=== PATIENT | female | born 1950 | race Two or more races ===

== ENCOUNTER 2025-06-02 10:50 | Outpatient (CLI) | payer OTHER | END 2025-06-02 17:00 | disposition home or self-care (01) | LOC: Rad HDHVI 10:50 | PROVIDERS: ATTEND Internal Medicine Cardiovascular Disease | DX: I07.1 Rheumatic tricuspid insufficiency (principal); R06.02 Shortness of breath | CPT/HCPCS: 93306 ==

== ENCOUNTER 2025-06-04 09:10 | Outpatient (CLI) | payer OTHER ==
[~2025-06-04] VITALS: Ht 154.9 cm; Wt 83.0 kg
[2025-06-04] MEDS ORDERED: ADENOSINE 90 MG/30 ML INJ IV ONE (09:34)
[2025-06-04] MEDS ORDERED: ADENOSINE 70 MG in GIVE UN-DILUTED 0 ML IV ONE (12:30)
== END 2025-06-04 17:00 | disposition home or self-care (01) ==
LOC: Rad HDHVI 09:10
PROVIDERS: ATTEND Internal Medicine Cardiovascular Disease
DX: I49.3 Ventricular premature depolarization (principal); I49.1 Atrial premature depolarization; R00.0 Tachycardia, unspecified; R00.1 Bradycardia, unspecified; R06.02 Shortness of breath; I82.90 Acute embolism and thrombosis of unspecified vein; I10 Essential (primary) hypertension; R94.31 Abnormal electrocardiogram [ECG] [EKG]; E78.00 Pure hypercholesterolemia, unspecified
CPT/HCPCS: 78452; 93017; A9500; J0153